=== PATIENT | female | born 1995 | race Caucasian/White ===

== ENCOUNTER 2017-12-21 13:35 | Emergency (ER) | payer OTHER ==
[2017-12-21 13:52] VITALS: BP 143/76
--- NOTE | 2017-12-21 13:59 | UC ---
Throat Pain/Nasal Davin HPI - HPI Summary HPI Summary: 22 y/o female presents to the urgent care c/o sinus congestion, pressure and pain w/ yellowish nasal discharge for the past 5 days. she also has sore throat since yesterday. Pt has been taking Mucinex PO to alleviate symptoms. Pain is 5/10. Pt deneis fever, SOB, wheezing, chest pain, abdominal pain, N/V/ D. LMP:12/10/2017 - History of Current Complaint Chief Complaint: UCGeneralIllness Stated Complaint: SINUS CONGESTION Time Seen by Provider: 12/21/17 13:56 Hx Obtained From: Patient Hx Last Menstrual Period: 11/2717 ?: No Onset/Duration: Gradual Onset, Lasting Days - 5 days, Still Present, Worse Since - today Severity: Moderate Pain Intensity: 5 Pain Scale Used: 0-10 Numeric Cough: Sputum Appears - yellowish Associated Signs & Symptoms: Positive: Sinus Discomfort, Nasal Discharge - yellowish, Other - mild sore throat. Negative: Fever - Epiglottits Risk Factors Epiglottis Risk Factors: Negative - Allergies/Home Medications Allergies/Adverse Reactions: Allergies Allergy/AdvReac Type Severity Reaction Status Date / Time No Known Allergies Allergy Verified 12/21/17 13:52 Home Medications: Home Medications Cetirizine* [ZyrTEC 10 MG TAB*] 1 tab PO DAILY PRN 12/21/17 [History Confirmed 12/21/17] Nizatidine 1 tab PO DAILY PRN 12/21/17 [History Confirmed 12/21/17] PMH/Surg Hx/FS Hx/Imm Hx Previously Healthy: Yes - Pt denies PMHX - Surgical History Surgical History: None - Family History Known Family History: Positive: Unknown - adopted - Social History Occupation: Student Lives: With Family Alcohol Use: Occasionally Substance Use Type: None Smoking Status (MU): Never Smoked Tobacco - Immunization History Most Recent Tetanus Shot: UNK Vaccination Up to Date: Yes Review of Systems Constitutional: Chills Skin: Negative Eyes: Negative ENT: Sore Throat, Nasal Discharge - yellowish, Sinus Congestion, Sinus Pain/ Tenderness Respiratory: Cough - yellowish phlegm Cardiovascular: Negative Gastrointestinal: Negative Genitourinary: Negative Motor: Negative Neurovascular: Negative Musculoskeletal: Negative Neurological: Headache Psychological: Negative Is Patient Immunocompromised?: No All Other Systems Reviewed And Are Negative: Yes Physical Exam - Summary Physical Exam Summary: Vitals: reviewed General: Well developed, well-nourished female patient with NAD. Head and face: Normocephalic and atraumatic, Positive tenderness over the frontal and maxillary sinuses.. Eyes: PERRLA, EOMI x 2. Normal conjunctiva. No eye discharge. ENT: Ears and TM with normal limits. Nose: edematous and erythematous nasal mucosa with with yellowish discharge and erythematous mucosa. Pharynx with erythema, no exudate. Neck: Supple, no JVD, no carotid bruits and no lymphadenopathy. Lungs: clear, no rales, no rhonchi, no wheezes. CVS: RRR, S1 and S2 present no murmurs or gallops appreciated. Abdomen: soft nontender with positive bowel sounds. Extremities: no edema noted. Neuro: WNL. Skin: warm and dry Triage Information Reviewed: Yes Vital Signs: Initial Vital Signs Temp 97.9 F 12/21/17 13:48 Pulse 65 12/21/17 13:48 Resp 18 12/21/17 13:48 BP 143/76 12/21/17 13:48 Pulse Ox 100 12/21/17 13:48 Throat Pain/Nasal Course/Dx - Course Course Of Treatment: 22 y/o female presents to the urgent care c/o sinus congestion, pressure and pain w/ yellowish nasal discharge for the past 5 days. she also has sore throat since yesterday. Pt has been taking Mucinex PO to alleviate symptoms. Pain is 5/10. Pt deneis fever, SOB, wheezing, chest pain, abdominal pain, N/V/D. LMP:12/10/2017. Hx obtained. Pt w/ acute bacterial sinusitis on examination. Pt's symptoms getting worse. Pt Rx Augmentin PO and flonase nasal spray. Discharge instructions explained to Pt. Advised to Return to the clinic or PCP if symptoms do not improve.Pt's BP is elevated today advised to decrease salt in diet, monitor BP and f/u with PCP for further management.Pt understood and agreed with plan of care. - Differential Dx/Diagnosis Differential Diagnosis/HQI/PQRI: Influenza, Laryngitis, Pharyngitis, Sinusitis, URI Provider Diagnoses: 1- Acute bacterial sinusitis. 2- Elevated BP w/o Hx of HTN Discharge - Sign-Out/Discharge Documenting (check all that apply): Patient Departure - D/c home All imaging exams completed and their final reports reviewed: No Studies - Discharge Plan Condition: Stable Disposition: HOME Prescriptions: Amoxicillin/Clavulanate TAB* [Augmentin TAB 875*] 875 mg PO BID #20 tab Fluticasone NASAL SPRAY 50MCG* [Flonase NASAL SPRAY 50MCG*] 2 spray BOTH NARES DAILY #1 btl Patient Education Materials: Sinusitis (ED), Low-Sodium Diet (ED) Referrals: [facility] [Outside] - 3 Days (3) Additional Instructions: 1- Please increase fluid intake and rest. take full course of antibiotic to avoid resistance 2-Use Flonase as directed to help drain fluid. Also buy saline drops to clear sinuses 3-Continue taking Ceterizine PO to alleviates sinus congestion 4-Return to the clinic or PCPin 3 days if symptoms do not improve for further management and treatment 5-Your BP is elevated today. please decrease salt in your diet, monitor BP and if it continues to be elevated please f/u with your PCP for further management - Billing Disposition and Condition Condition: STABLE Disposition: Home
[2017-12-21] MEDS ORDERED: Tetan/Diph/Pertus SYR(Tdap)* 0.5 ML SYR(BOOSTRIX) use SYR IM ONE (14:25)
== END 2017-12-21 14:19 | disposition home or self-care (01) ==
LOC: UCEAST 13:35
DX: J01.90 Acute sinusitis, unspecified (principal); B96.89 Other specified bacterial agents as the cause of diseases classified elsewhere; R03.0 Elevated blood-pressure reading, without diagnosis of hypertension
CPT/HCPCS: 99212; G0463